=== PATIENT | male | born 1975 | race Caucasian/White ===

== ENCOUNTER 2018-11-10 13:10 | Emergency (ER) | payer MEDICARE, MEDICAID ==
[~2018-11-10] VITALS: Ht 185.4 cm; Wt 94.1 kg
[2018-11-10 13:18] VITALS: BP 145/95
== END 2018-11-10 14:58 | disposition home or self-care (01) ==
LOC: ER 13:10
DX: S51.011A Laceration without foreign body of right elbow, initial encounter (principal); Z88.5 Allergy status to narcotic agent; W25.XXXA Contact with sharp glass, initial encounter; Y93.89 Activity, other specified; Y92.89 Other specified places as the place of occurrence of the external cause; Y99.9 Unspecified external cause status
CPT/HCPCS: 73080; 99284

== ENCOUNTER → 2019-03-08 | Emergency (ER) | payer MEDICARE, MEDICAID ==
[~2019-03-08] VITALS: Ht 180.3 cm; Wt 90.9 kg
[~2019-03-08] MED LIST: BACI1PAC7 TOP; TETanus/Pertussis (Acell)/Diphther VAC/PF (Tdap-Adult) 0.5ml syringe IM ONE; bacitracin 15gm ointment TP ONE
[2019-03-08 17:29] VITALS: BP 140/101
== END | disposition home or self-care (01) ==
LOC: ER 17:10
DX: S01.01XA Laceration without foreign body of scalp, initial encounter (principal); Z88.8 Allergy status to other drugs, medicaments and biological substances; Z79.2 Long term (current) use of antibiotics; X58.XXXA Exposure to other specified factors, initial encounter; Y93.89 Activity, other specified; Y92.89 Other specified places as the place of occurrence of the external cause; Y99.8 Other external cause status
CPT/HCPCS: 90471; 99283

== ENCOUNTER 2019-08-10 11:29 | Emergency (ER) | payer MEDICARE, MEDICAID ==
[~2019-08-10] VITALS: Ht 180.3 cm; Wt 90.9 kg
[2019-08-10 12:14] VITALS: BP 139/91
--- NOTE | 2019-08-10 14:19 | NUR ---
JOSÉ MIGUEL Gaines at bedside for splint application.
[2019-08-10] MEDS ORDERED: HYDR-3965 PO (16:20)
== END 2019-08-10 16:27 | disposition home or self-care (01) ==
LOC: ER 11:29
DX: S52.251A Displaced comminuted fracture of shaft of ulna, right arm, initial encounter for closed fracture (principal); S52.391A Other fracture of shaft of radius, right arm, initial encounter for closed fracture; R62.50 Unspecified lack of expected normal physiological development in childhood; Z88.5 Allergy status to narcotic agent; X50.1XXA Overexertion from prolonged static or awkward postures, initial encounter; Y93.89 Activity, other specified; Y92.89 Other specified places as the place of occurrence of the external cause; Y99.9 Unspecified external cause status
CPT/HCPCS: 29105; 73090; 99283

== ENCOUNTER 2020-07-26 11:09 | Emergency (ER) | payer MEDICARE, MEDICAID ==
[~2020-07-26] VITALS: Ht 185.4 cm; Wt 93.2 kg
[2020-07-26 11:41] VITALS: BP 115/75
== END 2020-07-26 14:43 | disposition home or self-care (01) ==
LOC: ER 11:10
DX: M79.675 Pain in left toe(s) (principal); M79.89 Other specified soft tissue disorders; Z88.8 Allergy status to other drugs, medicaments and biological substances
CPT/HCPCS: 73660; 99283

== ENCOUNTER 2021-12-05 11:01 | Emergency (ER) | payer MEDICARE, MEDICAID ==
[~2021-12-05] VITALS: Ht 180.3 cm; Wt 90.9 kg
[2021-12-05 11:03] VITALS: BP 122/85
[2021-12-05] MEDS ORDERED: ketorolac trometh inj. 60 MG/2 ML VIAL IM ONE (14:25)
== END 2021-12-05 16:56 | disposition home or self-care (01) ==
LOC: ER 11:01
DX: S52.301A Unspecified fracture of shaft of right radius, initial encounter for closed fracture (principal); R62.50 Unspecified lack of expected normal physiological development in childhood; Z88.8 Allergy status to other drugs, medicaments and biological substances; X58.XXXA Exposure to other specified factors, initial encounter; Y93.89 Activity, other specified; Y92.89 Other specified places as the place of occurrence of the external cause; Y99.8 Other external cause status
CPT/HCPCS: 29105; 73090; 96372; 99283; J1885

== ENCOUNTER 2024-09-10 10:49 | Emergency (ER) | payer MEDICARE, MEDICAID ==
[~2024-09-10] VITALS: Ht 177.8 cm; Wt 80.0 kg
[2024-09-10 11:26] VITALS: BP 135/74; PULSE 90; RESP 16; O2SAT 98
[2024-09-10 14:26] VITALS: TEMP 98.9
== END 2024-09-10 14:32 | disposition home or self-care (01) ==
LOC: ER 10:49
DX: S90.121A Contusion of right lesser toe(s) without damage to nail, initial encounter (principal); Z88.8 Allergy status to other drugs, medicaments and biological substances; X58.XXXA Exposure to other specified factors, initial encounter; Y93.89 Activity, other specified; Y92.89 Other specified places as the place of occurrence of the external cause; Y99.8 Other external cause status
CPT/HCPCS: 73660; 99283